=== PATIENT | male | born 1940 | race Caucasian/White ===

== ENCOUNTER 2021-09-12 11:13 | Day surgery (SDC) | payer MEDICARE, BC ==
[2021-09-07 07:50] LABS: BASOPHILS % (AUTO) 0.4 % (0-1); EOSINOPHILS # (AUTO) 0.2 X10'3 (0-0.9); EOSINOPHILS % (AUTO) 2.7 % (0-6); HEMATOCRIT 49.5 % (42.0-52.0); HEMOGLOBIN 16.6 g/dl (14.0-17.9); LYMPHOCYTES % (AUTO) 12.4 % (21-51); MEAN CORPUSCULAR HEMOGLOBIN 31.1 PG (27.0-31.0); MEAN CORPUSCULAR HGB CONC 33.6 g/dL (33.0-36.5); MEAN CORPUSCULAR VOLUME 92.5 FL (78-98); MEAN PLATELET VOLUME 6.6 FL (7.4-10.4); MONOCYTES # (AUTO) 0.6 X10'3 (0-0.9); MONOCYTES % (AUTO) 7.4 % (2-12); NEUTROPHILS # (AUTO) 6.4 X10'3 (1.8-7.7); NEUTROPHILS % (AUTO) 77.1 % (42-75); PLATELET COUNT 297 X10'3 (140-440); RED BLOOD COUNT 5.35 X10'6 (4.70-6.10); RED CELL DISTRIBUTION WIDTH 13.8 % (11.5-14.5); WHITE BLOOD COUNT 8.2 X10'3 (4.5-11.0)
[2021-09-07 08:12] LABS: ALBUMIN 3.8 G/DL (3.4-5.0); ANION GAP 7 (8-16); BLOOD UREA NITROGEN 16 MG/DL (7-18); BUN/CREATININE RATIO 14.4 (5.4-32.0); CALCIUM 9.3 MG/DL (8.5-10.1); CHLORIDE 106 MMOL/L (99-107); CREATININE 1.11 MG/DL (0.60-1.10); GLUCOSE 112 MG/DL (70-104); POTASSIUM 3.6 MMOL/L (3.5-5.1); SODIUM 142 MMOL/L (135-145); TOTAL CARBON DIOXIDE 29.5 MMOL/L (24-32); eGFR 64 ML/MIN
[2021-09-07 08:54] LABS: APTT 28 SECONDS (22-32)
[~2021-09-12] VITALS: Ht 185.4 cm; Wt 92.4 kg
[2021-09-12] VITALS (12 sets, daily range): BP systolic 141–180; BP diastolic 80–103
[2021-09-12] MEDS ORDERED: LIDOcaine/PRILOcaine 5gm cream TP ONE (11:35)
[2021-09-12] MEDS ORDERED: diphenhydrAMINE 25mg capsule PO ONE (11:35)
[2021-09-12] MEDS ORDERED: LORazepam 0.5 MG tablet PO ONE (11:35)
[2021-09-12] MEDS ORDERED: ATOR40TA72 PO (11:45)
[2021-09-12] MEDS ORDERED: METO-395 PO (11:45)
[2021-09-12] MEDS ORDERED: LOSA1TAB39 PO (11:45)
[2021-09-12] MEDS ORDERED: iohexol 300mg/ml 100ml inj. ONE (15:07)
[2021-09-12] MEDS ORDERED: LIDOcaine 1% 30ml preserv. free vial ONE (15:07)
[2021-09-12] MEDS ORDERED: heparin 1,000unit/ml 10ml vial 10 ML ONE (15:07)
[2021-09-12] MEDS ORDERED: verapamil 2.5 mg/ml inj IV ONE (15:07)
[2021-09-12] MEDS ORDERED: nitroGLYCERIN-Tridil 50MG/D5W 250 ML IV ONE (15:07)
[2021-09-12] MEDS ORDERED: fentaNYL/PF 50MCG/1 ML 2ML syringe ONE (15:07)
[2021-09-12] MEDS ORDERED: midazolam 1 mg/ML 2ml injection ONE (15:07)
[2021-09-12] MEDS ORDERED: HYDROcodone/acetaminophen 10/325mg tab PO PRN (16:40)
[2021-09-12] MEDS ORDERED: HYDROcodone/acetaminophen 5mg/325mg tablet PO PRN (16:40)
--- NOTE | 2021-09-12 18:00 | NUR ---
Written and verbal DC instructions given to pt and , both verbalize understanding.
--- NOTE | 2021-09-12 18:30 | NUR ---
Pt amb in [place], gait steady.
--- NOTE | 2021-09-12 18:45 | NUR ---
PIV DC cath intact. VSS, denies pain. Dressing to right radial site CD&I, no bleeding, bruising or hematoma noted. assisted pt to get dressed steady on feet.
--- NOTE | 2021-09-12 18:50 | NUR ---
DC to home with , transferred to private car via WC, pt able to transfer self to car.
== END 2021-09-12 18:50 | disposition home or self-care (01) ==
LOC: SSTAY O 11:13
PROVIDERS: ATTEND Internal Medicine Interventional Cardiology
DX: R94.39 Abnormal result of other cardiovascular function study (principal); R06.02 Shortness of breath; I25.10 Atherosclerotic heart disease of native coronary artery without angina pectoris; I11.9 Hypertensive heart disease without heart failure; Z79.899 Other long term (current) drug therapy; Z72.89 Other problems related to lifestyle; Z82.3 Family history of stroke; Z80.1 Family history of malignant neoplasm of trachea, bronchus and lung; Z81.8 Family history of other mental and behavioral disorders
CPT/HCPCS: 36415; 80048; 85025; 85610; 85730; 93005; 93458; 99152; 99153; C1769; C1894; J1644; J2250; J3010; J3490; Q0163; Q9967; A4620; A5120